=== PATIENT | female | born 1940 | race Caucasian/White ===

== ENCOUNTER 2024-05-21 12:37 | Outpatient (CLI) | payer MEDICARE, OTHER, SELFPAY ==
[2024-05-21 13:49] LABS: Anion Gap 11 mmol/L (4-12); Blood Urea Nitrogen 49 mg/dL (7-17); Calcium 8.7 mg/dL (8.4-10.2); Carbon Dioxide 21 mmol/L (22-30); Chloride 107 mmol/L (98-107); Estimated Glomerular Filt Rate 25; Glucose 86 mg/dL (65-110); Potassium 4.2 mmol/L (3.4-5.0); Sodium 139 mmol/L (137-145)
== END 2024-05-21 12:38 | disposition home or self-care (01) ==
LOC: ANHSURGERY 12:44
PROVIDERS: Anesthesiology; PCP Family Medicine; Visit Provider Urology
DX: Z01.818 Encounter for other preprocedural examination (principal); I10 Essential (primary) hypertension
CPT/HCPCS: 36415; 80048

== ENCOUNTER 2024-05-22 00:14 | Day surgery (SDC) | payer MEDICARE, OTHER, SELFPAY ==
--- NOTE | 2024-05-20 09:19 | PC.NURSE ---
Report to the Outpatient Waiting Room, entrance under the green pavilion located off [facility], at time _7:15 AM on date __05/22/24 . Planned Procedure Time: __9:15 AM . Time changes happen often and if your time is changed the preop area will call you the afternoon before. - You and your visitor will be asked to self-screen and do not enter if you have any COVID symptoms. - A mask is optional within the hospital at this time. Patients may have clear liquids (water, carbonated beverages, clear teas, apple juice) until 3 hours prior to surgery ( 6:15AM )with a maximum of 20 ounces. - No food from midnight until time of surgery - Infants may have breast milk until 4 hours before surgery, infant formula 6 hours prior to surgery. - Children will be allowed to drink immediately following surgery. If applicable, please bring a bottle or sippy cup to assist with drinking. Juice, water, soda, and popsicles are readily available. For infants on formula, please bring formula the day of surgery. Pacifiers are allowed. Take the following medications with a SIP of water the morning of surgery: __NONE DO NOT STOP ANY OF YOUR OTHER PRESCRIPTION MEDICATIONS PRIOR TO SURGERY ?EXCEPT THE FOLLOWING Medications to discontinue per physician PT STATES LAST DOSE ASPIRIN 05/19/[address] MCKEON. HOLD ALL VITAMINS AND SUPPLEMENTS 3 DAYS PRE OP .LAST DOSE 05/19/24 PER PT Please no make-up, nail uruguayan, hairspray, perfume, deodorant, or body powder the day of surgery. No jewelry (including any body piercings) or valuables the day of surgery, leave them at home. Please take a shower or bath the night before, or the morning of, surgery with an antibacterial soap. Wear comfortable, loose fitting clothing. Children are encouraged to wear pajamas. - Jewelry must be removed prior to entering the operating room. Rings and piercings that are not removed may be cut off. - The hospital will not accept responsibility for valuables. - Please leave all valuables, including medications, at home the day of surgery. If you are going home after surgery, a licensed experienced truck driver must drive you home. - NO public transportation without another adult if you receive anesthesia. - We recommend that an adult stay with you for 24 hours following discharge. - We also recommend that you do not drive, make important decision, drink alcoholic beverages, or take any drugs that were not prescribed by your health care provider for at least 24 hours after your discharge time Follow any additional instructions given to you from your surgeon. If you or anyone in your household have experienced Covid symptoms in the past week, please notify your surgeon or the nurse liaison at the phone number below for possible testing. Telephone instructions given to ___PATIENT and asked if any additional questions and then verbalized understanding. Patient advised to call surgeon office or pre surgery nurse liaison [phone] if any additional questions.
[2024-05-20 09:34] VITALS: BMI 21.4
--- NOTE | 2024-05-22 05:22 | WPDHPUPDATE1 ---
History and Physical Update Update Date/Time: 05/22/24 05:22 History and Physical has been reviewed, including an updated exam of the patient. There are NO changes in the patient's condition. Risks, benefits, and alternatives have been discussed and questions answered. Patient agrees to proceed with procedure.
--- NOTE | 2024-05-22 05:24 | PM.IMHP ---
H&P: HPI History of Present Illness Date/Time: 05/22/24 05:24 Chief Complaint: hunner ulcer Narrative: symptomatic hunner ulcer Review of Systems Review of Systems: All systems reviewed & are unremarkable except as noted in HPI and below PMFSH Social History Social History Years smoked: 15 Smoking status: Former smoker Tobacco type: cigarettes Smoking end date: 11/25/77 Alcohol intake: never Substance use: never Lack of Transportation: No Lack of Food: Never True Current Housing: I Have Housing Concerned About Future Housing: No Difficulty Paying Gas/Electric Bills: No Difficulty Paying for Meds: No Currently Unemployed: No Education: Bachelor's Degree Difficulty w/ Childcare or Family Care: No Living arrangements: alone Spiritual care concerns: No Meds Home Medications and Allergies Home Medications Medication Instructions Recorded Confirmed Type acetaminophen 500 mg tablet 1,000 mg PO BID 01/11/23 05/20/24 History aspirin 81 mg tablet,delayed 81 mg PO DAILY 01/11/23 05/20/24 History release cetirizine 10 mg tablet (Zyrtec) 10 mg PO DAILY 01/11/23 05/20/24 History ezetimibe 10 mg tablet (Zetia) 10 mg PO DAILY 01/11/23 05/20/24 History sertraline 25 mg tablet 25 mg PO HS 01/11/23 05/20/24 History vit C 250 mg-vit E 90 mg-zinc 40 2 tablet PO DAILY 01/11/23 05/20/24 History mg-copper 1 vo-myydjf-yofnal capsule (PreserVision AREDS-2) furosemide 40 mg tablet 40 mg PO DAILY 05/20/24 05/20/24 History losartan 50 mg tablet 50 mg PO DAILY 05/20/24 05/20/24 History mirabegron 25 mg tablet,extended 25 mg PO DAILY 05/20/24 05/20/24 History release 24 hr liokavhpirxj-ynvgngrv-vcwxjq tablet 1 tablet PO DAILY 05/20/24 05/20/24 History Allergies Allergy/AdvReac Type Severity Reaction Status Date / Time ciprofloxacin [From Cipro] AdvReac Unknown Gastrointestinal Verified 05/20/24 08:56 Upset benzonatate AdvReac Gastrointestinal Verified 05/20/24 08:56 [From Stephen Smart] Upset clopidogrel [From Plavix] AdvReac Dizziness Verified 05/20/24 08:56 Exam Narrative: NAD normal breathing A+O x3 Assessment and Plan Assessment and plan (1) 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
[2024-05-22 08:00] VITALS: BP 139/42; PULSE 84; RESP 14; TEMP 36.8; O2SAT 99
[2024-05-22] MEDS: LACTATED RINGERS 1,000 ML 30 ML IV CONT (08:00)
--- NOTE | 2024-05-22 08:09 | P.PNAN_ITS ---
Anes - Initial Pre Proc Eval Procedure: Operation Date: 05/22/24 09:15 Proposed Procedures p Cystoscopy with Steroid Injection - Eriberto Zepeda MD Date/Time: 05/22/24 08:09 Surgeon: Eriberto Zepeda MD Pre Op Diagnosis: sensory urge incontinence Patient Data Age: 84 Gender: F Height: 1.57 m Weight: 53.1 kg Allergies Allergy/AdvReac Type Severity Reaction Status Date / Time ciprofloxacin [From Cipro] AdvReac Unknown Gastrointestinal Verified 05/20/24 08:56 Upset benzonatate AdvReac Gastrointestinal Verified 05/20/24 08:56 [From Tessalon Perles] Upset clopidogrel [From Plavix] AdvReac Dizziness Verified 05/20/24 08:56 Home Medications Medication Instructions Recorded Confirmed Type acetaminophen 500 mg tablet 1,000 mg PO BID 01/11/23 05/20/24 History aspirin 81 mg tablet,delayed 81 mg PO DAILY 01/11/23 05/20/24 History release cetirizine 10 mg tablet (Zyrtec) 10 mg PO DAILY 01/11/23 05/20/24 History ezetimibe 10 mg tablet (Zetia) 10 mg PO DAILY 01/11/23 05/20/24 History sertraline 25 mg tablet 25 mg PO HS 01/11/23 05/20/24 History vit C 250 mg-vit E 90 mg-zinc 40 2 tablet PO DAILY 01/11/23 05/20/24 History mg-copper 1 sr-zemfgp-jsmhql capsule (PreserVision AREDS-2) furosemide 40 mg tablet 40 mg PO DAILY 05/20/24 05/20/24 History losartan 50 mg tablet 50 mg PO DAILY 05/20/24 05/20/24 History mirabegron 25 mg tablet,extended 25 mg PO DAILY 05/20/24 05/20/24 History release 24 hr wcvrynvjccxn-phkibfjg-oxvthd tablet 1 tablet PO DAILY 05/20/24 05/20/24 History Patient hx anesthesia problems: none Family hx anesthesia problems: none Results Review: All pre-operative results and documents have been reviewed as part of the pre- operative evaluation. PMFSH Social History Social History Years smoked: 15 Smoking status: Former smoker Tobacco type: cigarettes Smoking end date: 11/25/77 Alcohol intake: never Substance use: never Lack of Transportation: No Lack of Food: Never True Current Housing: I Have Housing Concerned About Future Housing: No Difficulty Paying Gas/Electric Bills: No Difficulty Paying for Meds: No Currently Unemployed: No Education: Bachelor's Degree Difficulty w/ Childcare or Family Care: No Living arrangements: alone Spiritual care concerns: No Anes - Eval Final PreProcedure Day of Procedure 05/22/24 08:09 Patient weight: normal Heart: regular rate and rhythm Lungs: clear to auscultation Airway: Mallampati scale class II Neurological: alert and oriented Last oral intake: >/= 8 hours ASA classification: II Emergent: no Anesthetic plan: proceed Anesthesia type and monitoring: general GIVS and standard monitoring Results Review: All pre-operative results and documents have been reviewed as part of the pre- operative evaluation. HTN, diet controlled hyperlipidemia. Informed Consent: The patient's anesthetic plan and its attendant risks and benefits were discussed with the patient/family/POA. Questions were solicited and answers provided to the satisfaction of the patient/family/POA.
[2024-05-22] MEDS: LIDOCAINE HCL 2% GEL UROJET 10 ML PKG MUCOUS MEM (08:22)
[2024-05-22] MEDS: TRIAMCINOLONE ACET INJ 40 MG/ML VIAL 200 MG IM (08:22)
[2024-05-22] MEDS: ceFAZolin 2 GM/D5W 50 ML 2 GM/50 ML BAG IVPB (08:48)
[2024-05-22 09:12] VITALS: BP 119/59; PULSE 86; RESP 12; O2SAT 98
--- NOTE | 2024-05-22 09:17 | P.OP_ITS ---
Procedure Note - Detailed Date of Procedure 05/22/24 Pre-op Diagnosis Hunner's ulcerations/eosinophilic cystitis Post-op Diagnosis Same Procedure Performed Cystoscopy, bladder biopsy, injection of steroid Surgeon Eriberto Zepeda MD Anesthesia General and Local (Lidocaine jelly) Indications Eye with recurrent Hunner's ulcerations and presumed interstitial cystitis. She has repeat symptoms in here today for repeat treatment. She understands risks of bleeding, infection, damage to urinary tract, lack of efficacy, need for repeat procedures. She agrees to proceed Findings Intensely inflamed bladder Description of Procedure He has correctly identified. Informed consent obtained. She from the operating room. She was given monitored anesthesia care. Lidocaine jelly was instilled. She was prepped and draped in a sterile fashion. She was given appropriate perioperative antibiotics. Time-out performed. Cystoscopy revealed cloudy urine which in the past was negative for infection. She had intensely inflamed bladder. Her bladder was quite small capacity. Essentially no normal bladder mucosa. Unable to identify ureteral orifices due to the extreme inflammation. I biopsied those small area on the posterior wall of her bladder. I fulgurated this area. There is diffuse oozing and cracking of all mucosal surfaces. I eventually could get a good view of her bladder and saw no tumors that would be consistent with cancer. I then injected steroids. 200 mg of Kenalog at a concentration of 40 milligrams/milliliter. I continued to examine her bladder. I filled in emptied many times. Eventually there was no significant oozing or bleeding. I drained her bladder and examined under low insufflation pressures. There was no significant bleeding. Her bladder was left empty. She was awak ened transferred to PACU in stable condition Estimated Blood Loss 3 Drains No Packing No Pathology Yes (Bladder biopsy) Condition Stable Disposition PACU
[2024-05-22 09:40] VITALS: BP 137/71; PULSE 83; RESP 12; O2SAT 98
== END 2024-05-22 09:50 | disposition home or self-care (01) ==
PROVIDERS: PCP Family Medicine; Visit Provider Urology
PROC: 0TJB8ZZ Inspection of Bladder, Via Natural or Artificial Opening Endoscopic (ICD-10-PCS; CPT 52000; principal; 2024-05-22 09:15)
DX: N30.10 Interstitial cystitis (chronic) without hematuria (principal); Z87.891 Personal history of nicotine dependence
CPT/HCPCS: 52204; 52283; 88305; J0690; J2405; J2704; J3301; J7120